=== PATIENT | female | born 1995 | race Caucasian/White ===

== ENCOUNTER 2016-12-09 23:11 | Emergency (ER) | payer OTHER, BC ==
[~2016-12-09] VITALS: Ht 160 cm; Wt 79.7 kg
[2016-12-09 23:20] VITALS: TEMP 37; Ht 160 cm; Wt 79.7 kg
[2016-12-09] MEDS ORDERED: IBUPROFEN 800 MG TAB PO STA (23:22)
[2016-12-09] MEDS ORDERED: IBUPROFEN 600 MG TAB ONE (23:32)
[2016-12-09] MEDS ORDERED: IBUPROFEN 200 MG TAB ONE (23:32)
--- NOTE | 2016-12-09 23:34 | EMERGENCY ROOM VISIT NOTE ---
History Report prepared by Bernice: Shamar Coreas Under the Supervision of: Dr. Saba Roy D.O. First contact with patient: 23:13 Chief Complaint: ARM PAIN Stated Complaint: SHOCKED IN ARM BY BLANKET History of Present Illness The patient is a 21 year old female who presents to the Emergency Room with complaints of constant numbness and tingling in her right arm secondary to a static electric shock that occurred shortly prior to arrival. The patient states that she was getting into her bed as usual this evening and was using a new fleece blanket. As the patient got comfortable in bed the fleece blanket began to shock her by static electricity on her right arm. She currently complains of tingling, numbness, and tightness in her right arm. The patient denies any history of heart problems. Source of History: patient Onset: Shortly [employer] Position: arm (right) Quality: tingling, numbness Timing: constant Note: Patient complains of tightness in the right arm as well Review of Systems See HPI for pertinent positives & negatives. A total of 10 systems reviewed and were otherwise negative. Past Medical & Surgical Patient denies any medical/surgical histories Family History Heart disease Social History Drug Use: none Housing Status: lives with roommate Occupation Status: [employer] Current/Historical Medications No Active Prescriptions or Reported Meds Allergies Coded Allergies: No Known Allergies (Unverified , 12/09/16) Physical Exam Vital Signs Date Time Temp Pulse Resp B/P Pulse Ox O2 Delivery O2 Flow Rate FiO2 12/10/16 00:38 91 20 114/65 98 12/09/16 23:20 37.0 99 18 130/95 98 Room Air 12/09/16 23:15 37.0 99 18 130/95 98 Room Air Physical Exam HEENT: Head - normocephalic and atraumatic Pupils are equal, round, and reactive to light. Extraocular eye muscles are intact, and sclera are anicteric. Nose - moist nasal mucosa without discharge. Mouth - moist buccal mucosa. Oropharynx is nonerythematous and there is no tonsillar exudate or edema noted. Neck: Supple; no JVD, nuchal rigidity, cervical lymphadenopathy. Heart: Regular rate and rhythm. There is a normal S1 and S2 with no murmurs, clicks, or gallops appreciated. Lungs: Clear to auscultation bilaterally with no wheezes, rales, or rhonchi. Abdomen: Soft, completely nontender, nondistended, with good bowel sounds. There are no palpable pulsatile masses or hepatosplenomegaly. There is no guarding, rigidity, or rebound noted. Extremities: No evidence of cyanosis, clubbing, or edema. There are easily palpable peripheral pulses. There were no martinez noted. Skin: warm and dry with good turgor and no rashes. Medical Decision & Procedures Medications Administered Medications (Trade) Dose Ordered Sig/Alysia Route Start Time Stop Time Status Last Admin Dose Admin Ibuprofen (Advil Tab) 200 mg STK-MED ONCE .ROUTE 12/09/16 23:32 12/09/16 23:33 DC 12/09/16 23:35 200 MG Ibuprofen (Motrin Tab) 600 mg STK-MED ONCE .ROUTE 12/09/16 23:32 12/09/16 23:33 DC 12/09/16 23:32 600 MG Procedure Medications Ordered: Ibuprofen ED Course 2317: Past medical records reviewed. The patient was evaluated in room A10. A complete history and physical exam was performed. 2322: Ordered Ibuprofen 800 mg PO. 0009: I had a lengthy conversation with the patient's father at this time. He was concerned that the patient was actually electrocuted by the heater that is located close to the patient's bed. The patient states that the blanket was not in contact with the heater at all. I reminded the patient's father that a blanket is not a conductor of electricity and would not conduct a shock from any outlets or heaters. The father was under the impression that the patient may have martinez to her right arm. This was not the case. The wraps linear dorman noted to the right arm. 0026: I reevaluated the patient at this time, she does not want anything more for pain. 0030:Upon reevaluation, the patient states she is ready to go home. I discussed findings and results with the patient. She verbalized agreement of the treatment plan. The patient was discharged home. Medical Decision This patient is a 21 year old female who presents to the emergency department for tingling and numbness in her right arm following a shock from static electricity. The patient was shocked in the right arm by a fleece blanket through static electricity. There was no contact with metal while the patient was in bed. There is no 220 voltage outlet connection to anything around the bed. I do not believe that she was electrocuted all. He thinks was as a result of static electricity. The patient was told to follow up with [facility] if her symptoms persisted. If she had any further shocks that involved an outlet, they should contact the fire department. Impression Primary Impression: static electric shock Scribe Attestation The scribe's documentation has been prepared under my direction and personally reviewed by me in its entirety. I confirm that the note above accurately reflects all work, treatment, procedures, and medical decision making performed by me. Departure Information Dispostion Home / Self-Care Prescriptions No Active Prescriptions or Reported Meds Forms HOME CARE DOCUMENTATION FORM, IMPORTANT VISIT INFORMATION Patient Instructions A Signature Page, My [facility] Additional Instructions Use motrin - 600mg every 6 hours with food for pain Use a humidifier in your bedroom. Return to the ER if symptoms worsen. If you develop any further electrical shocks or if you believe it's coming from an outlet, call the fire department
[2016-12-10 00:38] VITALS: BP 114/65; PULSE 91; O2SAT 98
== END 2016-12-10 00:40 | disposition home or self-care (01) ==
LOC: EDBD 23:11 → C.EDA 23:13
DX: T75.4XXA Electrocution, initial encounter (principal); R20.0 Anesthesia of skin; R20.2 Paresthesia of skin; Y92.003 Bedroom of unspecified non-institutional (private) residence as the place of occurrence of the external cause